=== PATIENT | female | born 1940 | race Caucasian/White ===

== ENCOUNTER 2019-01-28 15:07 | Emergency (ER) | payer MEDICARE, OTHER ==
[~2019-01-28] VITALS: Ht 165.1 cm; Wt 77.6 kg
--- NOTE | 2019-01-28 15:40 | NUR ---
BIB Caregiver "for medical/behavioral clearance-and then lateral transfer augie bruno [facility] " Patient a/ox1-2 breathing even and unlabored, no sob noted, needs attended. Will continue to monitor.
[2019-01-28 15:42] LABS: BASOPHILS # (AUTO) 0.1 /CMM (0.0-0.2); EOSINOPHILS % (AUTO) 2.6 % (0.0-6.0); HEMATOCRIT 39 % (33-45); HEMOGLOBIN 13.5 g/dL (11.5-14.8); LYMPHOCYTES # (AUTO) 2.1 /CMM (0.8-4.8); MEAN CORPUSCULAR HGB CONC 35 g/dl (31.0-36.0); MEAN CORPUSCULAR VOLUME 88 fL (82-100); MONOCYTES # (AUTO) 0.8 /CMM (0.1-1.30); NEUTROPHILS # (AUTO) 3.9 /CMM (1.8-8.9); NEUTROPHILS % (AUTO) 55.4 % (43.0-81.0); PLATELET COUNT (AUTO) 303 /CMM (150-450); RED BLOOD CELL COUNT(AUTO) 4.43 MIL/uL (4.0-5.2); WHITE BLOOD COUNT (AUTO) 7.1 K/uL (4.3-11.0)
--- NOTE | 2019-01-28 15:50 | NUR ---
Patient assisted to restroom, UA obtained and sent to lab.
[2019-01-28 15:54] LABS: CALCIUM, SERUM 9.1 mg/dL (8.5-10.1); CARBON DIOXIDE 21 mmol/L (21-32); CHLORIDE 100 mmol/L (98-107); CREATININE 1.3 mg/dL (0.6-1.3); GLUCOSE 145 mg/dL (74-106); POTASSIUM 3.9 mmol/L (3.5-5.1); SODIUM SERUM 134 mmol/L (136-145); UREA NITROGEN, BLOOD 30 mg/dL (7-18)
[2019-01-28 15:59] LABS: ALANINE AMINOTRANSFERASE 32 U/L (12-78); ALBUMIN 3.6 g/dL (3.4-5.0); ALKALINE PHOSPHATASE 56 U/L (46-116); ASPARTATE AMINOTRANSFERASE 20 U/L (15-37); BILIRUBIN,DIRECT 0.1 mg/dL (0.0-0.2); BILIRUBIN,TOTAL 0.2 mg/dL (0.2-1.0); TOTAL PROTEIN, SERUM 7.9 g/dL (6.4-8.2)
[2019-01-28 16:04] LABS: APPEARANCE,URINE CLOUDY (CLEAR); BILIRUBIN,URINE NEGATIVE (NEGATIVE); BLOOD, URINE 1+ Ery/uL (NEGATIVE); COLOR,URINE YELLOW (YELLOW); KETONES,URINE NEGATIVE (NEGATIVE); LEUKOCYTE ESTERASE ,URINE 2+ (NEGATIVE); NITRITE, URINE POSITIVE (NEGATIVE); PH,URINE 5.5 (5.0-8.0); PROTEIN,URINE NEGATIVE (NEGATIVE); UGLUCOSE NEGATIVE (NEGATIVE); UROBILINOGEN,URINE 0.2 EU/dL (0.2)
[2019-01-28 16:05] LABS: ALCOHOL, BLOOD < 3 mg/dL (0-0)
[2019-01-28 16:06] LABS: ACETAMINOPHEN < 10 ug/ml (10-30)
[2019-01-28 16:15] LABS: WBC,URINE 51-80 /HPF (0-3)
[2019-01-28 16:16] LABS: BACTERIA,URINE Moderate /HPF (None Seen); SQUAMOUS EPITHELIAL CELL,UR Moderate /HPF (None Seen)
[2019-01-28] MEDS ORDERED: CEPHALEXIN MONOHYDRATE 500 MG CAPSULE PO ONE ×2 (16:30)
--- NOTE | 2019-01-28 17:01 | NUR ---
CALLED [facility] BRUSHER MACHINE, ETA 1 HR.
--- NOTE | 2019-01-28 18:38 | NUR ---
CALLED [facility] FOR TRANSPORT ETA OF 0642 WAS GIVEN. TRIP#[id number]
--- NOTE | 2019-01-28 18:46 | NUR ---
PATIENT SEEN BY JOSELUIS, PATIENT WILL BE TRANSFERRED TO [facility].
--- NOTE | 2019-01-28 19:36 | NUR ---
PATIENT GIVEN FOOD TRAY. A/OX2-3 WITH EPISODES OF AGITATION. PATIENT ENDORSED TO GABINO RODRIGUEZ FOR PHYLLIS.
[2019-01-28] MEDS ORDERED: ACETAMINOPHEN 325 MG TABLET ONE (20:57)
[2019-01-28] MEDS ORDERED: ACETAMINOPHEN 650 MG/20.3 ML UDC PO ONE (21:00)
--- NOTE | 2019-01-28 21:14 | NUR ---
[facility] DELAYED. NEW ETA [id number]
--- NOTE | 2019-01-28 22:13 | NUR ---
[facility] 324 AT BEDSIDE FOR PT TRANSPORT TO [facility]. REPORT GIVEN.
[2019-01-28 23:29] VITALS: BP 142/77
--- NOTE | 2019-01-29 00:37 | NUR ---
SPOKE WITH FELISHA TOMPKINS STAFF FOR REPORT
[2019-02-04] MEDS ORDERED: AMLO5TAB9 PO (10:17)
[2019-02-04] MEDS ORDERED: CEPH-570 PO (10:20)
== END 2019-01-28 23:31 | disposition home or self-care (01) ==
LOC: ER 15:14
DX: R45.1 Restlessness and agitation (principal); I10 Essential (primary) hypertension; F31.9 Bipolar disorder, unspecified
CPT/HCPCS: 36415; 80048; 80076; 80305; 80307; 80329; 81001; 85025; 87086; 99284; G0480; 81000-TC

== ENCOUNTER 2019-02-02 20:00 | Inpatient (IN) | payer MEDICARE, OTHER ==
[~2019-02-02] VITALS: Ht 170.2 cm; Wt 79.8 kg
--- NOTE | 2019-02-02 20:40 | NUR ---
C/C CHRONIC BACK PAIN/ CHRONIC UTI X 4 YEARS, C/O SHIVERING, [place]. PT AAOX3, DENIES CP, SOB, DIZZINESS, N/V/D @ THIS TIME. SEEN & EVAL'D BY DR. GILL. WILL CONT TO MONITOR.
[2019-02-02 21:03] LABS: BASOPHILS # (AUTO) 0.1 /CMM (0.0-0.2); BASOPHILS % (AUTO) 1.7 % (0.0-2.0); HEMATOCRIT 40 % (33-45); HEMOGLOBIN 13.5 g/dL (11.5-14.8); LYMPHOCYTES # (AUTO) 2.7 /CMM (0.8-4.8); LYMPHOCYTES % (AUTO) 38.6 % (20.0-44.0); MEAN CORPUSCULAR HGB CONC 34 g/dl (31.0-36.0); MEAN CORPUSCULAR VOLUME 89 fL (82-100); MONOCYTES # (AUTO) 0.8 /CMM (0.1-1.30); MONOCYTES % (AUTO) 10.9 % (2.0-12.0); NEUTROPHILS # (AUTO) 3.3 /CMM (1.8-8.9); NEUTROPHILS % (AUTO) 45.8 % (43.0-81.0); PLATELET COUNT (AUTO) 317 /CMM (150-450); RED BLOOD CELL COUNT(AUTO) 4.43 MIL/uL (4.0-5.2); WHITE BLOOD COUNT (AUTO) 7.1 K/uL (4.3-11.0)
[2019-02-02 21:11] LABS: CALCIUM, SERUM 9.1 mg/dL (8.5-10.1); CARBON DIOXIDE 24 mmol/L (21-32); CHLORIDE 102 mmol/L (98-107); CREATININE 1.3 mg/dL (0.6-1.3); GLUCOSE 121 mg/dL (74-106); POTASSIUM 4.5 mmol/L (3.5-5.1); SODIUM SERUM 136 mmol/L (136-145); UREA NITROGEN, BLOOD 30 mg/dL (7-18)
[2019-02-02] MEDS ORDERED: IV NS 0.9% 500 ML BAG IV ONE (21:30)
[2019-02-02] MEDS ORDERED: hydrALAZINE HCL IV 20 MG VIAL IV ONE (21:30)
--- NOTE | 2019-02-02 21:42 | NUR ---
MEDICATED FOR HI BP, PT JHONATHAN WELL.
[2019-02-02 21:53] LABS: APPEARANCE,URINE Clear (CLEAR); BILIRUBIN,URINE Negative (NEGATIVE); BLOOD, URINE Trace-intact Ery/uL (NEGATIVE); COLOR,URINE Yellow (YELLOW); KETONES,URINE Negative (NEGATIVE); LEUKOCYTE ESTERASE ,URINE Moderate (NEGATIVE); NITRITE, URINE Negative (NEGATIVE); PH,URINE 7.5 (5.0-8.0); PROTEIN,URINE Negative (NEGATIVE); UGLUCOSE Negative (NEGATIVE); UROBILINOGEN,URINE 0.2 EU/dL (0.2)
[2019-02-02] MEDS ORDERED: CEFTRIAXONE 1 G in IV D5W 50 ML IV ONE (22:00)
[2019-02-02 22:02] LABS: BACTERIA,URINE Few /HPF (None Seen); RBC,URINE 0-2 /HPF (0-2); WBC,URINE 21-50 /HPF (0-3)
[2019-02-02 22:03] LABS: SQUAMOUS EPITHELIAL CELL,UR Few /HPF (None Seen)
[2019-02-02] MEDS ORDERED: CEFTRIAXONE 1GM BAG (ER ONLY) 50 ML IV ONE (22:03)
--- NOTE | 2019-02-02 22:03 | NUR ---
CALLED EDDIE SALAS PAGEKristen
--- NOTE | 2019-02-02 22:27 | NUR ---
REPORT GIVEN TO JENNIFER ESQUIVEL FOR PHYLLIS
[2019-02-02] MEDS ORDERED: MAG HYDROX/AL HYDROX/SIMETH 30 ML UDC PO PRN (22:30)
[2019-02-02] MEDS ORDERED: hydrALAZINE HCL IV 20 MG VIAL IV PRN (22:30)
[2019-02-02] MEDS ORDERED: ONDANSETRON HCL/PF 4 MG/2 ML VIAL IVP PRN (22:30)
[2019-02-02] MEDS ORDERED: NIFEdipine XL (30MG) 30 MG TAB PO SCH (22:30)
[2019-02-02] MEDS ORDERED: Z GUARD REMEDY 2 OZ OINT TP PRN (22:30)
[2019-02-02] MEDS ORDERED: MAGNESIUM HYDROXIDE 30 ML UDC PO PRN (22:30)
[2019-02-02] MEDS ORDERED: ACETAMINOPHEN 325 MG TABLET PO PRN (22:30)
[2019-02-02] MEDS ORDERED: NIFEdipine XL (30MG) 30 MG TAB PO ONE (22:34)
--- NOTE | 2019-02-02 22:58 | NUR ---
STATEMENT DISTRIBUTION CLERKEXECUTIVE COMPENSATION ANALYST NOTES Received patient from ER via [facility] accompanied by 2 ER staff. Admitted to Tele 324-1 due to hypertensive urgency under the service of INTERPRETIVE PROGRAM COORDINATOR Fritz Byrne. Transferred to bed comfortably. Admission routine done. Patient's belongings inventory completed by the assigned RABBIT FANCIER. Initial skin assessment done: per patient she has no skin issues identified. On tele monitor with SR noted. Initiated IVF as ordered. With complaints of back pain. Repositioned comfortably. Kept on bed clean, dry and comfortable. Call light within easy reach. On fall precautions. Will continue to monitor accordingly.
[2019-02-02 23:00] VITALS: BP 147/75
[2019-02-02] MEDS: IV NS 0.9% 1,000 ML IV PRN (23:12)
[2019-02-03] VITALS (7 sets, daily range): BP systolic 128–153; BP diastolic 55–83
[2019-02-03] MEDS: HYDROCODONE/APAP 5/325MG 1 EACH TABLET PO PRN ×3 (00:16→21:51)
[2019-02-03] MEDS: ZOLPIDEM TARTRATE 5 MG TABLET PO PRN (00:16)
--- NOTE | 2019-02-03 00:16 | NUR ---
RN NOTES Patient c/o back pain, 11/23. [place] 5/325 PO given as ordered. Will continue to monitor
[2019-02-03] MEDS ORDERED: FENO54TA PO (01:54)
[2019-02-03] MEDS ORDERED: POLY17PO4 PO (01:54)
[2019-02-03] MEDS ORDERED: SENN-168 PO (01:54)
[2019-02-03] MEDS ORDERED: ALBU2.5V13 NEB (02:00)
[2019-02-03] MEDS ORDERED: METO-357 PO (02:00)
[2019-02-03] MEDS ORDERED: CLON0.1T PO (02:00)
[2019-02-03] MEDS ORDERED: DIVA250T PO (02:00)
[2019-02-03] MEDS ORDERED: ALBUTEROL FS 2.5 MG/0.5 ML VIAL.NEB NEB PRN (02:30)
[2019-02-03] MEDS ORDERED: POLYETHYLENE GLYCOL 3350 17 GM POWD.PACK PO PRN (02:30)
--- NOTE | 2019-02-03 06:41 | NUR ---
MS RN CLOSING NOTES Patient still sleeping in bed, easy to arouse. Breathing even and unlabored. Not in any distress, on room air. No complaints at this time. Peripheral IV infusing at 75mL/hr. Tele monitor in place- sinus rhythm 71. All needs attended. Safety measures in place; call light within reach, bed in low, locked position. Will endorse PHYLLIS to oncoming RN
[2019-02-03 06:49] LABS: BASOPHILS # (AUTO) 0.1 /CMM (0.0-0.2); BASOPHILS % (AUTO) 1.1 % (0.0-2.0); HEMATOCRIT 37 % (33-45); HEMOGLOBIN 12.6 g/dL (11.5-14.8); LYMPHOCYTES # (AUTO) 2.4 /CMM (0.8-4.8); LYMPHOCYTES % (AUTO) 37.5 % (20.0-44.0); MEAN CORPUSCULAR HGB CONC 34 g/dl (31.0-36.0); MEAN CORPUSCULAR VOLUME 88 fL (82-100); MONOCYTES # (AUTO) 0.7 /CMM (0.1-1.30); MONOCYTES % (AUTO) 11.5 % (2.0-12.0); NEUTROPHILS % (AUTO) 46.9 % (43.0-81.0); PLATELET COUNT (AUTO) 302 /CMM (150-450); RED BLOOD CELL COUNT(AUTO) 4.23 MIL/uL (4.0-5.2); WHITE BLOOD COUNT (AUTO) 6.4 K/uL (4.3-11.0)
[2019-02-03 07:11] LABS: ALANINE AMINOTRANSFERASE 19 U/L (12-78); ALKALINE PHOSPHATASE 40 U/L (46-116); ASPARTATE AMINOTRANSFERASE 21 U/L (15-37); BILIRUBIN,TOTAL 0.2 mg/dL (0.2-1.0); CALCIUM, SERUM 8.7 mg/dL (8.5-10.1); CARBON DIOXIDE 21 mmol/L (21-32); CHLORIDE 105 mmol/L (98-107); CREATININE 1.2 mg/dL (0.6-1.3); GLUCOSE 96 mg/dL (74-106); PHOSPHORUS 3.2 mg/dL (2.5-4.9); POTASSIUM 4.3 mmol/L (3.5-5.1); SODIUM SERUM 137 mmol/L (136-145); TOTAL PROTEIN, SERUM 6.6 g/dL (6.4-8.2); UREA NITROGEN, BLOOD 25 mg/dL (7-18)
[2019-02-03 07:32] LABS: CHOLESTEROL 329 mg/dL (<200); HDL CHOLESTEROL 32 mg/dL (40-60); LDL 207 mg/dL (0-99); THYROID STIMULATING HORMONE 7.684 uIU/mL (0.358-3.74); TRIGLYCERIDES 491 mg/dL (30-150)
--- NOTE | 2019-02-03 07:45 | NUR ---
RN OPENING NOTES RECEIVED PATIENT IN BED RESTING COMFORTABLY IN MODERATE HIGH BACK REST. ON RA, NO SOB NOTED AT THIS TIME. ON IV FLUIDS ON RIGHT HAND #20 WITH NS @ 75ML/HR. PATENT AND INTACT. ON TELE MONITORING WITH CURRENT READING OF SR, HR OF 70'S. NO CARDIAC DISTRESS VOICED AT THIS TIME. SAFETY MEASURES IN PLACE, BED IN LOW LOCKED POSITION WITH SIDE RAILS UP X2. CALL LIGHT WITHIN REACH. WILL CONTINUE TO MONITOR.
[2019-02-03] MEDS: METOPROLOL SUCCINATE 50 MG TAB.SR.24H PO SCH ×2 (09:00→16:07)
[2019-02-03] MEDS: SENNOSIDES 8.6 MG TABLET PO SCH (09:20)
[2019-02-03] MEDS: DIVALPROEX SODIUM 250 MG TABLET.DR PO SCH ×3 (09:22→16:07)
[2019-02-03] MEDS: Fenofibrate 48 MG TABLET PO SCH (09:22)
[2019-02-03] MEDS: IV NS 0.9% 1,000 ML IV PRN (13:31)
--- NOTE | 2019-02-03 17:39 | NUR ---
[facility] has hx of dementia, [phone]. She can ambulate with a walker. Requires mod assist with adl's. Bedhold x7days with plan to discharge back to SNF. Addendum: 02/03/19 at 1739 by JAY CROCKETT RN Amended: Links added.
--- NOTE | 2019-02-03 18:30 | NUR ---
BOND UNDERWRITER CLOSING NOTES PATIENT IN BED RESTING COMFORTABLY IN MODERATE HIGH BACK REST. ON RA, TOLERATING WELL. ON IV FLUIDS ON RIGHT HAND #20 WITH NS @ 75ML/HR. PATENT AND INTACT. ON TELE MONITORING WITH CURRENT READING OF SR, HR OF 70'S. NO CARDIAC DISTRESS NOTED. SAFETY MEASURES IN PLACE, BED IN LOW LOCKED POSITION WITH SIDE RAILS UP X2. CALL LIGHT WITHIN REACH. WILL ENDORSED TO CARGO AGENT NURSE FOR PHYLLIS.
--- NOTE | 2019-02-03 18:49 | NUR ---
Patient has hx of dementia,resides at [facility] in [place] [phone]. Address; [address] [facility] [address].She can ambulate with a walker. Requires mod assist with adl's. Bedhold x7days with plan to discharge back to [facility]. Addendum: 02/03/19 at 1849 by JAY CROCKETT RN Amended: Links added. Addendum: 02/03/19 at 1851 by JAY CROCKETT RN please disregard above notes, wrong patient.
--- NOTE | 2019-02-03 19:25 | NUR ---
RN Notes Received patient awake, alert and oriented x3, on room air and tolerated well. Pain on lower back at tolerable level at this time 09/23. Telemonitor reads Sinus rhythm with heart rate at 81. IV access on right hand patent and intact with ongoing IVF infusing well.Voiding well, denies dysuria. Ambulate with min assist. Safety measures and fall precaution in place.Kept comfortable and attended. Will continue to monitor patient.
[2019-02-03] MEDS: CEFTRIAXONE 1 G in IV D5W 50 ML IV SCH (21:36)
--- NOTE | 2019-02-03 21:51 | NUR ---
RN Notes Patient complains of low back pain, 11/23. [place] 5/325 mg tab given PO and tolerated well. Will continue to monitor patient.
[2019-02-04] VITALS: BP 109/61
[2019-02-04 04:00] VITALS: BP 123/56
--- NOTE | 2019-02-04 06:20 | NUR ---
RN Notes Patient voided 5x overnight, denies dysuria. Vital signs stable, afebrile. Low back pain managed with current regimen with good relief. Telemonitor reads sinus rhythm with heart rate at 74. Current diet tolerated well, denies nausea and vomiting.Fall precaution observed, all needs attended with call light within reach. Will continue to monitor and endorse accordingly.
[2019-02-04] MEDS: IV NS 0.9% 1,000 ML IV PRN (07:01)
--- NOTE | 2019-02-04 07:35 | NUR ---
MS RN NOTES PATIENT IN BED EYES CLOSED. EASY AROUSE, RESPOND TO VERBAL AND TACTILE STIMULI. NO ACUTE DISTRESS NOTED. BREATHING UNLABORED. NO SOB NOTED. IV ACCESS PATENT AND INTACT, NO REDNESS, NO SWELLING NOTED. SAFETY MEASURES IN PLACE, CALL LIGHT WITHIN REACH. WILL CONTINUE TO MONITOR ACCORDINGLY.
[2019-02-04 08:15] VITALS: BP 161/87
[2019-02-04 08:23] LABS: BASOPHILS # (AUTO) 0.1 /CMM (0.0-0.2); BASOPHILS % (AUTO) 1.2 % (0.0-2.0); EOSINOPHILS % (AUTO) 3.6 % (0.0-6.0); HEMATOCRIT 42 % (33-45); HEMOGLOBIN 14.3 g/dL (11.5-14.8); LYMPHOCYTES # (AUTO) 2.1 /CMM (0.8-4.8); LYMPHOCYTES % (AUTO) 26.3 % (20.0-44.0); MEAN CORPUSCULAR HGB CONC 34 g/dl (31.0-36.0); MEAN CORPUSCULAR VOLUME 89 fL (82-100); MONOCYTES # (AUTO) 0.8 /CMM (0.1-1.30); MONOCYTES % (AUTO) 10.4 % (2.0-12.0); NEUTROPHILS # (AUTO) 4.7 /CMM (1.8-8.9); NEUTROPHILS % (AUTO) 58.5 % (43.0-81.0); PLATELET COUNT (AUTO) 290 /CMM (150-450); RED BLOOD CELL COUNT(AUTO) 4.75 MIL/uL (4.0-5.2)
[2019-02-04] MEDS: DIVALPROEX SODIUM 250 MG TABLET.DR PO SCH ×3 (08:31→16:51)
[2019-02-04] MEDS: Fenofibrate 48 MG TABLET PO SCH (08:31)
[2019-02-04] MEDS: SENNOSIDES 8.6 MG TABLET PO SCH (08:31)
[2019-02-04] MEDS: METOPROLOL SUCCINATE 50 MG TAB.SR.24H PO SCH ×2 (08:32→16:57)
[2019-02-04 08:55] LABS: ALANINE AMINOTRANSFERASE 27 U/L (12-78); ALBUMIN 3.2 g/dL (3.4-5.0); ALKALINE PHOSPHATASE 45 U/L (46-116); ASPARTATE AMINOTRANSFERASE 26 U/L (15-37); BILIRUBIN,TOTAL 0.3 mg/dL (0.2-1.0); CARBON DIOXIDE 23 mmol/L (21-32); CHLORIDE 103 mmol/L (98-107); CREATININE 1.2 mg/dL (0.6-1.3); GLUCOSE 92 mg/dL (74-106); MAGNESIUM 1.9 mg/dL (1.8-2.4); PHOSPHORUS 3.1 mg/dL (2.5-4.9); POTASSIUM 4.7 mmol/L (3.5-5.1); SODIUM SERUM 136 mmol/L (136-145); TOTAL PROTEIN, SERUM 7.4 g/dL (6.4-8.2); UREA NITROGEN, BLOOD 20 mg/dL (7-18)
[2019-02-04] MEDS ORDERED: AMLO5TAB9 PO (10:17)
[2019-02-04] MEDS ORDERED: CEPH-570 PO (10:20)
[2019-02-04] MEDS: AMLODIPINE BESYLATE 5 MG TABLET PO SCH (11:04)
--- NOTE | 2019-02-04 18:48 | NUR ---
MS RN NOTES PATIENT IN BED EYES CLOSED, EASY TO AROUSE. RESPOND TO VERBAL AND TACTILE STIMULI. NO ACUTE DISTRESS NOTED. BREATHING UNLABORED. NO SOB NOTED. IV ACCESS PATENT AND INTACT, NO REDNESS, NO SWELLING NOTED. DUE MEDICATIONS GIVEN, NO ASE NOTED. SAFETY MEASURES IN PLACE, CALL LIGHT WITHIN REACH. WILL ENDORSE TO NIGHT NURSE FOR CONTINUITY OF CARE.
[2019-02-04 20:00] VITALS: BP 149/74
[2019-02-04] MEDS: CEFTRIAXONE 1 G in IV D5W 50 ML IV SCH (21:03)
[2019-02-04] MEDS: ZOLPIDEM TARTRATE 5 MG TABLET PO PRN (21:48)
[2019-02-04] MEDS ORDERED: GUAIFENESIN/D-METHORPHAN HB 5 ML UDC PO PRN ×2 (22:30)
[2019-02-05 06:33] LABS: BASOPHILS # (AUTO) 0.1 /CMM (0.0-0.2); BASOPHILS % (AUTO) 0.9 % (0.0-2.0); EOSINOPHILS % (AUTO) 5.4 % (0.0-6.0); HEMATOCRIT 38 % (33-45); LYMPHOCYTES # (AUTO) 2.2 /CMM (0.8-4.8); LYMPHOCYTES % (AUTO) 32.2 % (20.0-44.0); MEAN CORPUSCULAR HGB CONC 34 g/dl (31.0-36.0); MEAN CORPUSCULAR VOLUME 88 fL (82-100); MONOCYTES # (AUTO) 0.7 /CMM (0.1-1.30); MONOCYTES % (AUTO) 10.7 % (2.0-12.0); NEUTROPHILS # (AUTO) 3.5 /CMM (1.8-8.9); NEUTROPHILS % (AUTO) 50.8 % (43.0-81.0); PLATELET COUNT (AUTO) 313 /CMM (150-450); RED BLOOD CELL COUNT(AUTO) 4.35 MIL/uL (4.0-5.2); WHITE BLOOD COUNT (AUTO) 6.9 K/uL (4.3-11.0)
--- NOTE | 2019-02-05 06:52 | NUR ---
MS RN NOTES AWAKE & RESPONSIVE. NOT IN ANY DISTRESS. NO SOB NOTED. DENIES ANY PAIN OR DISCOMFORT AT THIS TIME. AM CARE DONE. MONITORED ACCORDINGLY. CALL LIGHT WITHIN REACH. BED IN LOWEST POSITION. SR UP X 3 WITH BED ALARM ON FOR SAFETY. WILL ENDORSE TO NEXT SHIFT.
--- NOTE | 2019-02-05 07:15 | NUR ---
MS RN NOTES PATIENT IN BED ALERT ORIENTED X 3. NO ACUTE DISTRESS NOTED. BREATHING UNLABORED. NO SOB NOTED. IV ACCESS PATENT AND INTACT, NO REDNESS, NO SWELLING NOTED. SAFETY MEASURES IN PLACE, CALL LIGHT WITHIN REACH. WILL CONTINUE TO MONITOR ACCORDINGLY.
[2019-02-05 07:16] LABS: CALCIUM, SERUM 8.6 mg/dL (8.5-10.1); CARBON DIOXIDE 23 mmol/L (21-32); CHLORIDE 102 mmol/L (98-107); CREATININE 1.2 mg/dL (0.6-1.3); GLUCOSE 96 mg/dL (74-106); MAGNESIUM 1.9 mg/dL (1.8-2.4); PHOSPHORUS 3.4 mg/dL (2.5-4.9); POTASSIUM 4.2 mmol/L (3.5-5.1); SODIUM SERUM 136 mmol/L (136-145); UREA NITROGEN, BLOOD 20 mg/dL (7-18)
[2019-02-05 08:00] VITALS: BP 141/106
[2019-02-05] MEDS: DIVALPROEX SODIUM 250 MG TABLET.DR PO SCH ×2 (08:38→12:48)
[2019-02-05] MEDS: Fenofibrate 48 MG TABLET PO SCH (08:38)
[2019-02-05] MEDS: SENNOSIDES 8.6 MG TABLET PO SCH (08:38)
[2019-02-05 08:39] VITALS: BP 141/100
[2019-02-05] MEDS: AMLODIPINE BESYLATE 5 MG TABLET PO SCH (08:39)
[2019-02-05] MEDS: METOPROLOL SUCCINATE 50 MG TAB.SR.24H PO SCH (08:39)
--- NOTE | 2019-02-05 11:02 | NUR ---
MS RN NOTES SEEN AND EVALUATED BY DR GROVES WITH NEW ORDERS MADE, NOTED AND CARRIED OUT.
--- NOTE | 2019-02-05 14:00 | NUR ---
MANAGER OF QUALITY NOTES PATIENT DISCHARGE TO [facility], REPORT GIVEN TO INGRID RODRIGUEZ. DISCHARGE INSTRUCTIONS GIVEN TO PATIENT, VERBALIZED UNDERSTANDING. ALL BELONGINGS ACCOUNTED FOR. NEEDS ATTENDED AND ANTICIPATED. DUE MEDICATIONS GIVEN, NO ASE NOTED. PATIENT ALERT ORIENTED X 3. NO ACUTE DISTRESS NOTED. WITH STABLE VITAL SIGNS.SKIN IS INTACT. IV ACCESS REMOVED, NO BLEEDING, NO REDNESS, NO SWELLING NOTED. PICKED UP VIA PRIVATE VEHICLE PROVIDED BY [facility] IN A WHEELCHAIR ACCOMPANIED BY [facility] PERSONNEL IN STABLE CONDITION.
== END 2019-02-05 14:10 | DRG 689 ==
LOC: ER 20:02 → TELE 22:19 → MED 02-04 08:54
PROVIDERS: ADMIT Hospitalist; ATTEND Internal Medicine
DX: N39.0 Urinary tract infection, site not specified (principal); N17.0 Acute kidney failure with tubular necrosis; I16.0 Hypertensive urgency; E86.0 Dehydration; I10 Essential (primary) hypertension; E78.5 Hyperlipidemia, unspecified; F03.90 Unspecified dementia, unspecified severity, without behavioral disturbance, psychotic disturbance, mood disturbance, and anxiety; F31.9 Bipolar disorder, unspecified; Z87.440 Personal history of urinary (tract) infections; N84.2 Polyp of vagina; G47.00 Insomnia, unspecified
CPT/HCPCS: 36415; 80048-TC; 80053-TC; 80061-TC; 81000-TC; 82962-TC; 83735-TC; 84100-TC; 84443-TC; 85025-TC; 87081-TC; 87086-TC; 97116-TC; 97530-TC; G0378; J0360; J0696; J7030; J7040; J7060

== ENCOUNTER 2023-06-27 12:31 | Emergency (ER) | payer MEDICARE, OTHER ==
[~2023-06-27] VITALS: Ht 170.2 cm; Wt 79.8 kg
[~2023-06-27 12:31] MED LIST: ALBU2.5V13 NEB; AMLO-212 PO; CEPH-570 PO; CLON0.1T PO; DIVA250T PO; FENO54TA PO; METO-357 PO; POLY17PO4 PO; SENN-261 PO
[2023-06-27 13:03] LABS: BASOPHILS # (AUTO) 0.1 K/uL (0.0-0.2); EOSINOPHILS # (AUTO) 0.2 K/uL (0.0-0.7); HEMOGLOBIN 12.3 g/dL (11.5-14.8); MONOCYTES # (AUTO) 0.7 K/uL (0.1-1.30); RED CELL DISTRIBUTION WIDTH 15.3 % (11.5-15.0); WHITE BLOOD COUNT (AUTO) 8.5 K/uL (4.3-11.0)
[2023-06-27] MEDS ORDERED: DOXA4TAB19 PO (13:14)
[2023-06-27] MEDS ORDERED: ATOR40TA PO (13:14)
[2023-06-27] MEDS ORDERED: FENO48TA6 PO (13:14)
[2023-06-27] MEDS ORDERED: BISA10SU11 RC (13:14)
[2023-06-27] MEDS ORDERED: MELA3TAB41 PO (13:14)
[2023-06-27] MEDS ORDERED: MAGN400O6 PO (13:14)
[2023-06-27] MEDS ORDERED: ACET-868 PO (13:14)
[2023-06-27] MEDS ORDERED: MULT-447 PO (13:14)
[2023-06-27] MEDS ORDERED: MONT10TA22 PO (13:14)
[2023-06-27] MEDS ORDERED: CALC500T63 PO (13:14)
[2023-06-27] MEDS ORDERED: OXYQ113.2 VG ×2 (13:14)
[2023-06-27] MEDS ORDERED: ESTR42.511 VG (13:14)
[2023-06-27] MEDS ORDERED: OMEG-88 PO (13:14)
[2023-06-27] MEDS ORDERED: POLY15DR40 EACHEYE (13:14)
[2023-06-27] MEDS ORDERED: NA P133E RC (13:14)
[2023-06-27] MEDS ORDERED: CHOL100043 PO (13:14)
[2023-06-27] MEDS ORDERED: ZINC56.713 TP (13:14)
[2023-06-27] MEDS ORDERED: ACET-2605 PO (13:14)
[2023-06-27] MEDS ORDERED: DONE5TAB34 PO (13:14)
[2023-06-27 13:32] LABS: BASOPHILS % (AUTO) 1.1 % (0.0-2.0); EOSINOPHILS % (AUTO) 2.6 % (0.0-6.0); HEMATOCRIT 37 % (33-45); LYMPHOCYTES % (AUTO) 35.6 % (20.0-44.0); MEAN CORPUSCULAR HEMOGLOBIN 29 PG (26.0-33.0); MEAN CORPUSCULAR HGB CONC 33 g/dl (31.0-36.0); MEAN CORPUSCULAR VOLUME 87 fL (82-100); MONOCYTES % (AUTO) 7.8 % (2.0-12.0); NEUTROPHILS # (AUTO) 4.5 K/uL (1.8-8.9); NEUTROPHILS % (AUTO) 52.9 % (43.0-81.0); PLATELET COUNT (AUTO) 394 K/uL (150-450); RED BLOOD CELL COUNT(AUTO) 4.31 MIL/uL (4.0-5.2)
[2023-06-27] MEDS ORDERED: ACETAMINOPHEN ES 500 MG TABLET PO PRN (14:30)
[2023-06-27] MEDS ORDERED: ACETAMINOPHEN 325 MG TABLET PO PRN (14:30)
[2023-06-27] MEDS ORDERED: BISACODYL SUPP (10 MG) 10 MG/SUPP.RECT SUPP.RECT RC PRN (14:30)
[2023-06-27 14:41] LABS: CALCIUM, SERUM 9.8 mg/dL (8.5-10.1); CARBON DIOXIDE 24 mmol/L (21-32); CHLORIDE 102 mmol/L (98-107); CREATININE 1.3 mg/dL (0.6-1.3); GLUCOSE 96 mg/dL (74-106); POTASSIUM 4.4 mmol/L (3.5-5.1); SODIUM SERUM 137 mmol/L (136-145); UREA NITROGEN, BLOOD 27 mg/dL (7-18)
[2023-06-27 15:02] LABS: ALANINE AMINOTRANSFERASE 15 U/L (12-78); ALBUMIN 3.5 g/dL (3.4-5.0); ALCOHOL, BLOOD 3 mg/dL (0-10); ALKALINE PHOSPHATASE 73 U/L (46-116); ASPARTATE AMINOTRANSFERASE 18 U/L (15-37); BILIRUBIN,DIRECT 0.1 mg/dL (0.0-0.2); BILIRUBIN,TOTAL 0.2 mg/dL (0.2-1.0); TOTAL PROTEIN, SERUM 8.3 g/dL (6.4-8.2)
[2023-06-27 15:05] LABS: ACETAMINOPHEN 0 ug/ml (10-30); SALICYLATE 1.8 mg/dL (2.8-20.0)
[2023-06-27 15:14] LABS: APPEARANCE,URINE SLIGHTLY CLOUDY (CLEAR); BILIRUBIN,URINE NEGATIVE (NEGATIVE); BLOOD, URINE 1+ Ery/uL (NEGATIVE); COLOR,URINE YELLOW (YELLOW); KETONES,URINE NEGATIVE (NEGATIVE); LEUKOCYTE ESTERASE ,URINE 3+ (NEGATIVE); NITRITE, URINE POSITIVE (NEGATIVE); PROTEIN,URINE TRACE mg/dl (NEGATIVE); UGLUCOSE NEGATIVE (NEGATIVE); UROBILINOGEN,URINE 0.2 EU/dL (0.2)
[2023-06-27 15:29] LABS: AMPHETAMINE, URINE NEGATIVE (NEGATIVE); BARBITURATE, URINE NEGATIVE (NEGATIVE); BENZODIAZEPINE, URINE NEGATIVE (NEGATIVE); CANNABINOID, URINE NEGATIVE (NEGATIVE); COCCAINE, URINE NEGATIVE (NEGATIVE); OPIATE, URINE NEGATIVE (NEGATIVE); PHENCYCLIDINE SCREEN,URINE NEGATIVE (NEGATIVE)
[2023-06-27] MEDS ORDERED: POLYVINYL ALCOHOL 15 ML BOTTLE EACHEYE PRN (15:30)
[2023-06-27 15:54] LABS: ADD URINE CULTURE YES; BACTERIA,URINE 3+ /HPF (None Seen); WBC,URINE 51-80 /HPF (0-3)
[2023-06-27] MEDS ORDERED: NITROFURANTOIN/MONOHYDRATE MACROCRYSTALS 100 MG CAPSULE PO SCH (17:00)
[2023-06-27 17:49] VITALS: BP 169/74; TEMP 97.8; O2SAT 98
[2023-06-27] MEDS ORDERED: ATORVASTATIN 40 MG TABLET PO SCH (18:00)
[2023-06-27] MEDS ORDERED: CALCIUM CARBONATE 500 MG TAB.CHEW PO SCH (18:00)
[2023-06-27] MEDS ORDERED: SENNOSIDES 8.6 MG TABLET PO SCH (22:00)
[2023-06-27] MEDS ORDERED: POLYETHYLENE GLYCOL 3350 17 GM POWD.PACK PO SCH (22:00)
[2023-06-28] MEDS ORDERED: DONEPEZIL 5 MG TABLET PO SCH (09:00)
[2023-06-28] MEDS ORDERED: METOPROLOL SUCCINATE 50 MG TAB.SR.24H PO SCH (09:00)
[2023-06-28] MEDS ORDERED: MULTIVIT W/MINERALS 1 TAB TABLET PO SCH (09:00)
[2023-06-28] MEDS ORDERED: Fenofibrate 48 MG TABLET PO SCH (09:00)
[2023-06-28] MEDS ORDERED: DOXAZOSIN MESYLATE (4 MG) 4 MG TABLET PO SCH (09:00)
[2023-06-28] MEDS ORDERED: MONTELUKAST SODIUM (10MG) 10 MG TABLET PO SCH (09:00)
[2023-06-28] MEDS ORDERED: CHOLECALCIFEROL 1,000 UNIT TABLET (VIT D3) PO SCH (09:00)
[2023-06-30] MEDS ORDERED: OXYQUINOLINE VG SCH (14:30)
[2023-06-30] MEDS ORDERED: [UNRECOGNIZED DRUG - OTHER] VG SCH (14:30)
== END 2023-06-27 17:49 ==
LOC: ER 12:36
DX: G30.9 Alzheimer's disease, unspecified (principal); F02.811 Dementia in other diseases classified elsewhere, unspecified severity, with agitation; F01.511 Vascular dementia, unspecified severity, with agitation; R45.1 Restlessness and agitation; I10 Essential (primary) hypertension; E78.5 Hyperlipidemia, unspecified; K21.9 Gastro-esophageal reflux disease without esophagitis; F31.9 Bipolar disorder, unspecified; Z87.440 Personal history of urinary (tract) infections; Z79.899 Other long term (current) drug therapy; Z20.822 Contact with and (suspected) exposure to COVID-19
CPT/HCPCS: 36415; 80048-TC; 80076-TC; 81001; 85025-TC; 87081-TC; 87086-TC; G0480

== ENCOUNTER 2024-09-09 19:27 | Inpatient (IN) | payer MEDICARE, OTHER ==
[~2024-09-09] VITALS: Ht 167.6 cm; Wt 68.0 kg
[~2024-09-09 19:27] MED LIST changes: +ACET-2605 PO; +ACET-868 PO; -ALBU2.5V13 NEB; -AMLO-212 PO; +ATOR40TA PO; +BISA10SU11 RC; +CALC500T63 PO; -CEPH-570 PO; +CHOL100043 PO; -CLON0.1T PO; +DONE5TAB34 PO; +DOXA4TAB19 PO; +ESTR42.511 VG; +FENO48TA6 PO; -FENO54TA PO; +MAGN400O6 PO; +MELA3TAB41 PO; +MONT10TA22 PO; +MULT-447 PO; +NA P133E RC; +OMEG-88 PO; +OXYQ113.2 VG; +POLY15DR40 EACHEYE; +ZINC56.713 TP
[2024-09-09 23:38] LABS: BASOPHILS # (AUTO) 0.1 K/uL (0.0-0.2); BASOPHILS % (AUTO) 0.5 % (0.0-2.0); EOSINOPHILS # (AUTO) 0.5 K/uL (0.0-0.7); EOSINOPHILS % (AUTO) 4.7 % (0.0-6.0); HEMATOCRIT 38 % (33-45); HEMOGLOBIN 12.6 g/dL (11.5-14.8); LYMPHOCYTES # (AUTO) 3.7 K/uL (0.8-4.8); LYMPHOCYTES % (AUTO) 35.3 % (20.0-44.0); MEAN CORPUSCULAR HEMOGLOBIN 27 PG (26.0-33.0); MEAN CORPUSCULAR HGB CONC 33 g/dl (31.0-36.0); MEAN CORPUSCULAR VOLUME 83 fL (82-100); MONOCYTES % (AUTO) 9.5 % (2.0-12.0); NEUTROPHILS # (AUTO) 5.2 K/uL (1.8-8.9); PLATELET COUNT (AUTO) 316 K/uL (150-450); RED BLOOD CELL COUNT(AUTO) 4.62 MIL/uL (4.0-5.2); RED CELL DISTRIBUTION WIDTH 16.1 % (11.5-15.0); WHITE BLOOD COUNT (AUTO) 10.4 K/uL (4.3-11.0)
[2024-09-09 23:53] LABS: CALCIUM, SERUM 9.3 mg/dL (8.5-10.1); CARBON DIOXIDE 24 mmol/L (21-32); CHLORIDE 101 mmol/L (98-107); CREATININE 1.3 mg/dL (0.6-1.3); GLUCOSE 111 mg/dL (74-106); POTASSIUM 4.1 mmol/L (3.5-5.1); SODIUM SERUM 135 mmol/L (136-145); UREA NITROGEN, BLOOD 22 mg/dL (7-18)
[2024-09-10] LABS: ACETAMINOPHEN <10 ug/ml (10-30); ALANINE AMINOTRANSFERASE 10 U/L (12-78); ALBUMIN 2.9 g/dL (3.4-5.0); ALCOHOL, BLOOD < 3 mg/dL (0-10); ALKALINE PHOSPHATASE 99 U/L (46-116); ASPARTATE AMINOTRANSFERASE 14 U/L (15-37); BILIRUBIN,DIRECT 0.1 mg/dL (0.0-0.2); BILIRUBIN,TOTAL 0.2 mg/dL (0.2-1.0); SALICYLATE 2.2 mg/dL (2.8-20.0)
[2024-09-10] LABS: APPEARANCE,URINE SLIGHTLY CLOUDY (CLEAR); BILIRUBIN,URINE NEGATIVE (NEGATIVE); BLOOD, URINE TRACE-INTA Ery/uL (NEGATIVE); COLOR,URINE YELLOW (YELLOW); KETONES,URINE NEGATIVE (NEGATIVE); LEUKOCYTE ESTERASE ,URINE 3+ (NEGATIVE); NITRITE, URINE NEGATIVE (NEGATIVE); PROTEIN,URINE NEGATIVE (NEGATIVE); UGLUCOSE NEGATIVE (NEGATIVE); UROBILINOGEN,URINE 0.2 EU/dL (0.2)
[2024-09-10 00:14] LABS: AMPHETAMINE, URINE NEGATIVE (NEGATIVE); BARBITURATE, URINE NEGATIVE (NEGATIVE); BENZODIAZEPINE, URINE NEGATIVE (NEGATIVE); CANNABINOID, URINE NEGATIVE (NEGATIVE); COCCAINE, URINE NEGATIVE (NEGATIVE); OPIATE, URINE NEGATIVE (NEGATIVE); PHENCYCLIDINE SCREEN,URINE NEGATIVE (NEGATIVE)
[2024-09-10] MEDS: CEPHALEXIN MONOHYDRATE 500 MG CAPSULE PO ONE (00:30)
[2024-09-10 00:33] LABS: WBC,URINE 81-100 /HPF (0-3)
[2024-09-10] MEDS ORDERED: CEPHALEXIN MONOHYDRATE 500 MG CAPSULE PO ONE (00:34)
[2024-09-10 00:35] LABS: ADD URINE CULTURE YES; BACTERIA,URINE Few /HPF (None Seen)
[2024-09-10] MEDS ORDERED: CLONIDINE HCL 0.1 MG TABLET ONE (02:46)
[2024-09-10] MEDS: CLONIDINE HCL 0.1 MG TABLET PO ONE (02:51)
[2024-09-10 04:35] VITALS: O2SAT 94
[2024-09-10] MEDS ORDERED: ZOLPIDEM TARTRATE 5 MG TABLET PO PRN (05:30)
[2024-09-10] MEDS ORDERED: MAG HYDROX/AL HYDROX/SIMETH 30 ML UDC PO PRN (05:30)
[2024-09-10] MEDS ORDERED: ACETAMINOPHEN 325 MG TABLET PO PRN (05:30)
[2024-09-10] MEDS ORDERED: MAGNESIUM HYDROXIDE 30 ML UDC PO PRN (05:30)
[2024-09-10] MEDS: BLOOD SUGAR DIAGNOSTIC 1 EACH STRIP IN ONE (05:49)
[2024-09-10] MEDS ORDERED: Z GUARD REMEDY 4 OZ OINT TP PRN (06:30)
[2024-09-10 08:00] VITALS: BP_SYST 154; BP_SYST 172; BP_DIAS 61; BP_DIAS 64; TEMP 97.8; O2SAT 98
[2024-09-10] MEDS ORDERED: ASCO-352 PO (09:24)
[2024-09-10] MEDS ORDERED: CALCIUM CARBONATE 500 MG TAB.CHEW PO PRN (10:30)
[2024-09-10] MEDS: ASCORBIC ACID 500 MG TABLET PO SCH (11:05)
[2024-09-10] MEDS: DOXAZOSIN MESYLATE (4 MG) 4 MG TABLET PO SCH (11:37)
[2024-09-10] MEDS ORDERED: CEPHALEXIN MONOHYDRATE 250 MG CAPSULE PO SCH (12:00)
[2024-09-10] MEDS: CEPHALEXIN MONOHYDRATE 250 MG CAPSULE PO SCH (12:59)
[2024-09-10 16:00] VITALS: BP 140/64; TEMP 98.6; O2SAT 98
[2024-09-10] MEDS: SENNOSIDES 8.6 MG TABLET PO SCH (21:18)
[2024-09-10] MEDS: ATORVASTATIN 40 MG TABLET PO SCH (21:18)
[2024-09-10] MEDS: MIRTAZAPINE 15 MG TABLET PO SCH (21:18)
[2024-09-11 08:00] VITALS: BP 160/100; TEMP 97.6; O2SAT 99
[2024-09-11 10:26] VITALS: BP 152/77
[2024-09-11] MEDS: LORAZEPAM 0.5 MG TABLET PO PRN (11:07)
[2024-09-11 12:03] VITALS: BP 162/71
[2024-09-11] MEDS: AMLODIPINE BESYLATE 2.5 MG TABLET PO SCH (12:04)
[2024-09-11 15:46] LABS: BASOPHILS # (AUTO) 0.1 K/uL (0.0-0.2); BASOPHILS % (AUTO) 0.6 % (0.0-2.0); EOSINOPHILS # (AUTO) 0.5 K/uL (0.0-0.7); EOSINOPHILS % (AUTO) 4.4 % (0.0-6.0); HEMATOCRIT 37 % (33-45); HEMOGLOBIN 12.3 g/dL (11.5-14.8); LYMPHOCYTES # (AUTO) 3.1 K/uL (0.8-4.8); LYMPHOCYTES % (AUTO) 25.4 % (20.0-44.0); MEAN CORPUSCULAR HEMOGLOBIN 27 PG (26.0-33.0); MEAN CORPUSCULAR HGB CONC 33 g/dl (31.0-36.0); MEAN CORPUSCULAR VOLUME 82 fL (82-100); MONOCYTES # (AUTO) 1.1 K/uL (0.1-1.30); MONOCYTES % (AUTO) 9.1 % (2.0-12.0); NEUTROPHILS # (AUTO) 7.5 K/uL (1.8-8.9); NEUTROPHILS % (AUTO) 60.5 % (43.0-81.0); PLATELET COUNT (AUTO) 375 K/uL (150-450); RED BLOOD CELL COUNT(AUTO) 4.51 MIL/uL (4.0-5.2); RED CELL DISTRIBUTION WIDTH 16.5 % (11.5-15.0); WHITE BLOOD COUNT (AUTO) 12.3 K/uL (4.3-11.0)
[2024-09-11 15:54] LABS: CALCIUM, SERUM 9.7 mg/dL (8.5-10.1); CREATININE 1.2 mg/dL (0.6-1.3); POTASSIUM 4.2 mmol/L (3.5-5.1)
[2024-09-11 16:00] VITALS: BP 118/76; TEMP 97.6; O2SAT 99
[2024-09-11 20:24] VITALS: BP 120/84; TEMP 97.8; O2SAT 99
[2024-09-12 08:00] VITALS: BP 104/63; TEMP 97.8; O2SAT 97
[2024-09-12] MEDS: OXCARBAZEPINE 150 MG TABLET PO SCH (16:05)
[2024-09-12 16:10] VITALS: BP 103/77; TEMP 97.8; O2SAT 98
[2024-09-12 23:06] VITALS: BP 112/63; TEMP 97.8; O2SAT 96
[2024-09-13 08:00] VITALS: BP 160/55; TEMP 98.6; O2SAT 97
[2024-09-13] MEDS: CEFTRIAXONE 1 G VIAL IM SCH (12:52)
[2024-09-13 15:21] VITALS: BP 135/59; TEMP 98; O2SAT 96
[2024-09-13 20:20] VITALS: BP 130/79; TEMP 98; O2SAT 100
[2024-09-13] MEDS ORDERED: QUETIAPINE FUMARATE 25 MG TABLET PO SCH (21:00)
[2024-09-13] MEDS: OLANZAPINE 2.5 MG TABLET PO SCH (21:14)
[2024-09-14 08:00] VITALS: BP 163/62; TEMP 97.5; O2SAT 98
[2024-09-14 16:00] VITALS: BP 134/61; TEMP 97.8; O2SAT 98
[2024-09-14 20:02] VITALS: BP 134/72; TEMP 97.8; O2SAT 98
[2024-09-15 08:00] VITALS: BP 141/96; TEMP 98.7; O2SAT 97
[2024-09-15 16:00] VITALS: BP 151/96; TEMP 98.6; O2SAT 98
[2024-09-15 20:03] VITALS: BP 139/90; TEMP 98.5; O2SAT 98
[2024-09-15] MEDS: OXCARBAZEPINE 150 MG TABLET PO SCH (21:21)
[2024-09-15] MEDS: ZOLPIDEM TARTRATE 5 MG TABLET PO PRN (23:04)
[2024-09-16 08:00] VITALS: BP 136/90; TEMP 98; O2SAT 97
[2024-09-16 16:00] VITALS: BP 135/65; TEMP 98; O2SAT 96
[2024-09-16 20:00] VITALS: BP 133/73; TEMP 98.1; O2SAT 95
[2024-09-17 08:00] VITALS: BP 138/66; TEMP 97.8; O2SAT 96
[2024-09-17 16:00] VITALS: BP 130/89; TEMP 98; O2SAT 98
[2024-09-17 20:47] VITALS: BP 127/74; TEMP 98; O2SAT 98
[2024-09-18 08:00] VITALS: BP 125/68; TEMP 97.6; O2SAT 97
[2024-09-18 16:00] VITALS: BP 153/75; TEMP 98; O2SAT 99
[2024-09-18 20:20] VITALS: BP 134/78; TEMP 97.5; O2SAT 98
[2024-09-19 08:00] VITALS: BP 143/67; TEMP 98.1; O2SAT 99
[2024-09-19 15:47] VITALS: BP 140/86; TEMP 98.1; O2SAT 97
[2024-09-19 20:11] VITALS: BP 103/69; TEMP 98.2; O2SAT 99
[2024-09-20 08:00] VITALS: BP 141/68; TEMP 98.6; O2SAT 100
[2024-09-20 16:00] VITALS: BP 145/97; TEMP 97.4; O2SAT 99
[2024-09-20 17:48] LABS: BASOPHILS # (AUTO) 0.1 K/uL (0.0-0.2); BASOPHILS % (AUTO) 0.5 % (0.0-2.0); EOSINOPHILS # (AUTO) 0.1 K/uL (0.0-0.7); EOSINOPHILS % (AUTO) 0.9 % (0.0-6.0); HEMATOCRIT 39 % (33-45); HEMOGLOBIN 12.9 g/dL (11.5-14.8); LYMPHOCYTES # (AUTO) 1.4 K/uL (0.8-4.8); LYMPHOCYTES % (AUTO) 11.3 % (20.0-44.0); MEAN CORPUSCULAR HEMOGLOBIN 27 PG (26.0-33.0); MEAN CORPUSCULAR HGB CONC 33 g/dl (31.0-36.0); MEAN CORPUSCULAR VOLUME 83 fL (82-100); MONOCYTES # (AUTO) 0.3 K/uL (0.1-1.30); MONOCYTES % (AUTO) 2.8 % (2.0-12.0); NEUTROPHILS # (AUTO) 10.5 K/uL (1.8-8.9); NEUTROPHILS % (AUTO) 84.5 % (43.0-81.0); PLATELET COUNT (AUTO) 395 K/uL (150-450); RED BLOOD CELL COUNT(AUTO) 4.76 MIL/uL (4.0-5.2); RED CELL DISTRIBUTION WIDTH 16.3 % (11.5-15.0); WHITE BLOOD COUNT (AUTO) 12.4 K/uL (4.3-11.0)
[2024-09-20 18:03] LABS: CALCIUM, SERUM 9.9 mg/dL (8.5-10.1); CREATININE 1.4 mg/dL (0.6-1.3); POTASSIUM 4.3 mmol/L (3.5-5.1)
[2024-09-20 20:08] VITALS: BP 141/69; TEMP 97.9; O2SAT 97
== END 2024-09-20 22:08 | disposition short-term general hospital (02) | DRG 885 ==
LOC: ER 19:30 → GPS 09-10 02:57
PROVIDERS: ADMIT Psychiatry & Neurology Psychiatry; ATTEND Nurse Practitioner Acute Care
DX: F39 Unspecified mood [affective] disorder (principal); G93.41 Metabolic encephalopathy; F02.83 Dementia in other diseases classified elsewhere, unspecified severity, with mood disturbance; E87.1 Hypo-osmolality and hyponatremia; E44.0 Moderate protein-calorie malnutrition; N39.0 Urinary tract infection, site not specified; F02.82 Dementia in other diseases classified elsewhere, unspecified severity, with psychotic disturbance; F29 Unspecified psychosis not due to a substance or known physiological condition; G30.9 Alzheimer's disease, unspecified; I10 Essential (primary) hypertension; F31.9 Bipolar disorder, unspecified; Z73.6 Limitation of activities due to disability; K21.9 Gastro-esophageal reflux disease without esophagitis; R26.2 Difficulty in walking, not elsewhere classified; Z79.899 Other long term (current) drug therapy; E86.0 Dehydration; E78.5 Hyperlipidemia, unspecified; E88.09 Other disorders of plasma-protein metabolism, not elsewhere classified; R79.89 Other specified abnormal findings of blood chemistry; B96.89 Other specified bacterial agents as the cause of diseases classified elsewhere; Z91.148 Patient's other noncompliance with medication regimen for other reason; Z87.440 Personal history of urinary (tract) infections
CPT/HCPCS: 36415; 74018; 80048-TC; 80061-TC; 80076-TC; 81001; 82962-TC; 85025-TC; 87081-TC; 87086-TC; 87186-TC; 97110-TC; 97116-TC; 97530-TC; G0480; J0696

== ENCOUNTER 2024-09-20 21:17 | Inpatient (IN) | payer MEDICARE, OTHER ==
[~2024-09-20 21:17] MED LIST changes: +ASCO-352 PO; -BISA10SU11 RC; -CHOL100043 PO; -DIVA250T PO; -DONE5TAB34 PO; -ESTR42.511 VG; -FENO48TA6 PO; -MELA3TAB41 PO; -METO-357 PO; -MONT10TA22 PO; -MULT-447 PO; -OMEG-88 PO; -OXYQ113.2 VG; -POLY15DR40 EACHEYE; -POLY17PO4 PO; -ZINC56.713 TP
[2024-09-20] MEDS ORDERED: MAG HYDROX/AL HYDROX/SIMETH 30 ML UDC PO PRN (23:00)
[2024-09-21] MEDS: hydrALAZINE HCL IV 20 MG VIAL IV ONE (00:06)
[2024-09-21] MEDS: ONDANSETRON HCL/PF 4 MG/2 ML VIAL IVP PRN (01:45)
[2024-09-21 04:00] VITALS: BP 159/69; TEMP 97.8; O2SAT 98
[2024-09-21 06:49] LABS: CALCIUM, SERUM 9.5 mg/dL (8.5-10.1); CREATININE 1.1 mg/dL (0.6-1.3); MAGNESIUM 2.2 mg/dL (1.8-2.4); PHOSPHORUS 3.1 mg/dL (2.5-4.9); POTASSIUM 3.9 mmol/L (3.5-5.1)
[2024-09-21 07:05] LABS: BASOPHILS % (AUTO) 0.2 % (0.0-2.0); HEMATOCRIT 40 % (33-45); HEMOGLOBIN 12.9 g/dL (11.5-14.8); LYMPHOCYTES # (AUTO) 1.1 K/uL (0.8-4.8); LYMPHOCYTES % (AUTO) 9.2 % (20.0-44.0); MEAN CORPUSCULAR HEMOGLOBIN 27 PG (26.0-33.0); MEAN CORPUSCULAR HGB CONC 33 g/dl (31.0-36.0); MEAN CORPUSCULAR VOLUME 82 fL (82-100); MONOCYTES # (AUTO) 0.3 K/uL (0.1-1.30); MONOCYTES % (AUTO) 2.7 % (2.0-12.0); NEUTROPHILS # (AUTO) 10.5 K/uL (1.8-8.9); NEUTROPHILS % (AUTO) 87.9 % (43.0-81.0); PLATELET COUNT (AUTO) 386 K/uL (150-450); RED BLOOD CELL COUNT(AUTO) 4.85 MIL/uL (4.0-5.2); RED CELL DISTRIBUTION WIDTH 16.1 % (11.5-15.0); WHITE BLOOD COUNT (AUTO) 11.9 K/uL (4.3-11.0)
[2024-09-21 07:37] VITALS: BP 152/78; TEMP 98.1
[2024-09-21] MEDS: ASCORBIC ACID 500 MG TABLET PO SCH (08:22)
[2024-09-21] MEDS: DOXAZOSIN MESYLATE (4 MG) 4 MG TABLET PO SCH (08:26)
[2024-09-21] MEDS: PANTOPRAZOLE 40 MG VIAL IV SCH (09:39)
[2024-09-21 11:43] VITALS: BP 144/58; TEMP 97.9
[2024-09-21 12:00] VITALS: BP 146/63; TEMP 98.2
[2024-09-21] MEDS: ACETAMINOPHEN 325 MG TABLET PO PRN (12:14)
[2024-09-21] MEDS: CALCIUM CARBONATE 500 MG TAB.CHEW PO PRN (12:15)
[2024-09-21] MEDS: IV NS 0.9% 1,000 ML IV ONE (13:10)
[2024-09-21 15:32] LABS: APPEARANCE,URINE CLOUDY (CLEAR); COLOR,URINE YELLOW (YELLOW)
[2024-09-21 15:33] LABS: LEUKOCYTE ESTERASE ,URINE 4+ (NEGATIVE); NITRITE, URINE NEGATIVE (NEGATIVE)
[2024-09-21 15:34] LABS: BLOOD, URINE 3+ Ery/uL (NEGATIVE); PH,URINE 7.5 (5.0-8.0); PROTEIN,URINE 2+ mg/dl (NEGATIVE); UGLUCOSE NEGATIVE (NEGATIVE)
[2024-09-21 15:35] LABS: BILIRUBIN,URINE NEGATIVE (NEGATIVE); KETONES,URINE NEGATIVE (NEGATIVE)
[2024-09-21 15:36] LABS: UROBILINOGEN,URINE 0.2 EU/dL (0.2)
[2024-09-21 15:39] LABS: ADD URINE CULTURE YES; BACTERIA,URINE Few /HPF (None Seen); SQUAMOUS EPITHELIAL CELL,UR Moderate /HPF (None Seen); URINE AMORPHOUS PHOSPHATES Many /HPF (None Seen)
[2024-09-21 16:00] VITALS: BP 149/68; TEMP 99.1; O2SAT 96
[2024-09-21 17:34] LABS: EOSINOPHIL,URINE None Seen
[2024-09-21 20:00] VITALS: BP 141/56; TEMP 100.2
[2024-09-21] MEDS: SENNOSIDES 8.6 MG TABLET PO SCH (22:31)
[2024-09-21] MEDS: ATORVASTATIN 40 MG TABLET PO SCH (22:31)
[2024-09-22 04:00] VITALS: BP 167/56; TEMP 98.8; O2SAT 96
[2024-09-22 07:53] LABS: CALCIUM, SERUM 8.7 mg/dL (8.5-10.1); MAGNESIUM 1.7 mg/dL (1.8-2.4); PHOSPHORUS 2.2 mg/dL (2.5-4.9); POTASSIUM 4.2 mmol/L (3.5-5.1)
[2024-09-22 08:47] LABS: THYROID STIMULATING HORMONE 2.95 uIU/mL (0.358-3.74); URIC ACID 5.8 mg/dL (2.6-7.2)
[2024-09-22] MEDS: PANTOPRAZOLE 40 MG TABLET.DR PO SCH (09:36)
[2024-09-22] MEDS: CEFTRIAXONE 1 G in IV D5W 50 ML IV SCH (09:36)
[2024-09-22] MEDS: MAGNESIUM OXIDE 400 MG TABLET PO ONE (11:05)
[2024-09-22 12:00] VITALS: BP 167/56; TEMP 98.8; O2SAT 96
[2024-09-22] MEDS: K PHOS NEUTRAL 250 MG TABLET PO ONE (15:30)
[2024-09-22 16:00] VITALS: BP 129/64; TEMP 98.8; O2SAT 97
[2024-09-22 20:00] VITALS: BP 130/70; TEMP 98.6; O2SAT 99
[2024-09-22] MEDS: OLANZAPINE 2.5 MG TABLET PO SCH (22:30)
[2024-09-23 04:00] VITALS: BP 138/72; TEMP 98.4; O2SAT 100
[2024-09-23 07:34] LABS: CARBON DIOXIDE 25 mmol/L (21-32); CHLORIDE 101 mmol/L (98-107); CREATININE 1.2 mg/dL (0.6-1.3); GLUCOSE 101 mg/dL (74-106); MAGNESIUM 1.7 mg/dL (1.8-2.4); PHOSPHORUS 2.8 mg/dL (2.5-4.9); SODIUM SERUM 134 mmol/L (136-145); UREA NITROGEN, BLOOD 21 mg/dL (7-18)
[2024-09-23 08:00] VITALS: BP 132/71; TEMP 97.9; O2SAT 97
[2024-09-23 08:31] LABS: CALCIUM, SERUM 9.3 mg/dL (8.5-10.1)
[2024-09-23] MEDS: OLANZAPINE 2.5 MG TABLET PO SCH (10:01)
[2024-09-23] MEDS: MAGNESIUM OXIDE 400 MG TABLET PO ONE (10:14)
[2024-09-23 12:00] VITALS: BP 132/71; TEMP 97.9; O2SAT 97
[2024-09-23 20:00] VITALS: BP 116/86; TEMP 98.4; O2SAT 96
[2024-09-24 04:17] VITALS: BP 142/66; TEMP 97.7; O2SAT 95
[2024-09-24 08:00] VITALS: BP 153/88; TEMP 100.1; O2SAT 96
[2024-09-24] MEDS ORDERED: Olanzapine PO ×2 (10:36)
[2024-09-24] MEDS ORDERED: NITR100C15 PO (10:36)
[2024-09-24 11:00] VITALS: BP 153/88
[2024-09-24] MEDS: NITROFURANTOIN/MONOHYDRATE MACROCRYSTALS 100 MG CAPSULE PO SCH (11:01)
== END 2024-09-24 18:25 | DRG 640 ==
LOC: MEDSG1 21:17
PROVIDERS: ATTEND Internal Medicine
DX: E86.0 Dehydration (principal); N17.0 Acute kidney failure with tubular necrosis; F01.53 Vascular dementia, unspecified severity, with mood disturbance; N39.0 Urinary tract infection, site not specified; G93.49 Other encephalopathy; F03.92 Unspecified dementia, unspecified severity, with psychotic disturbance; E78.5 Hyperlipidemia, unspecified; F31.9 Bipolar disorder, unspecified; K21.9 Gastro-esophageal reflux disease without esophagitis; Z87.440 Personal history of urinary (tract) infections; I10 Essential (primary) hypertension; E87.1 Hypo-osmolality and hyponatremia; B95.2 Enterococcus as the cause of diseases classified elsewhere; Z79.899 Other long term (current) drug therapy; E86.9 Volume depletion, unspecified; Z74.09 Other reduced mobility
CPT/HCPCS: 36415; 71045-TC; 80048-TC; 81001; 83735-TC; 84100-TC; 84443-TC; 84550-TC; 85025-TC; 87081-TC; 87086-TC; 87186-TC; A4223; G0378; J0360; J0696; J2405; J2470; J7030; J7040; J7050; J7060